=== PATIENT | male | born 1970 ===

== ENCOUNTER 2023-03-29 05:18 | Day surgery (SDC) | payer OTHER ==
[2023-03-25 13:14] LABS: URINE APPEARANCE Clear; URINE BILIRRUBIN Negative (NEGATIVE); URINE BLOOD Trace; URINE COLOR Yellow; URINE GLUCOSE Negative (NEGATIVE); URINE LEUKOCYTE Trace; URINE NITRATE Negative; URINE PROTEIN Negative (NEGATIVE); URINE UROBILINOGEN 0.2 E.U./dl
[2023-03-25 13:19] LABS: HEMATOCRIT 48.8 % (39.0-48.0); HEMOGLOBIN 15.9 g/dL (13-16.00); MEAN CELL VOLUME 82.4 fL (80.0-100.00); MEAN CORPUSCULAR HEMOGLOBIN 26.8 pg (27.00-32.0); MEAN CORPUSCULAR HGB CONC 32.5 g/dl (32.0-36.0); PLATELET COUNT 401 K/uL (150-450); RED BLOOD COUNT 5.92 M/uL (4.00-6.00); RED CELL DISTRIBUTION WIDTH 14.7 % (11.5-14.5)
[2023-03-25 13:43] LABS: INR 1.09; PARTIAL THROMBOPLASTIN TIME 28.6 SECONDS (22.0-34.0); PROTHROMBIN TIME 11.4 SECONDS (9.0-11.5)
[2023-03-25 13:54] LABS: URINE BACTERIA MODERATE; URINE EPITHELIAL CELLS 0-4 /HPF; URINE MUCUS SCANT
[2023-03-25 13:57] LABS: ALBUMIN 3.6 gm/dL (3.4-5.0); BILIRUBIN TOTAL 0.39 mg/dL (0.3-1.2); BILIRUBIN,CONJUGATED 0.14 mg/dL (0.0-0.2); BILIRUBIN,UNCONJUGATED 0.25 mg/dL (0.0-0.6); CALCIUM 9.2 mg/dL (8.5-10.1); CREATININE SERUM 0.75 mg/dL (0.70-1.30); GFR 110.23; GLOBULINA 3.6 G/DL (2.4-3.5); POTASSIUM 4.53 mEq/L (3.5-5.1); TOTAL PROTEIN 7.2 gm/dL (6.4-8.2)
[~2023-03-29] VITALS: Ht 165.1 cm; Wt 136.1 kg
[2023-03-29] MEDS ORDERED: ONDANSETRON ODT8 MG PO (10:06)
[2023-03-29] MEDS ORDERED: TAMS0.4C PO (10:06)
[2023-03-29] MEDS ORDERED: KETO10TA2 PO (10:06)
[2023-03-29] MEDS ORDERED: PERCOCET 5-3251 EACH PO (10:06)
[2023-03-29] MEDS ORDERED: PROTONIX IV40 MG IV (10:06)
== END 2023-03-29 12:35 | disposition home or self-care (01) ==
LOC: CIR.AMB 05:18
PROVIDERS: ATTEND Surgery
DX: K80.10 Calculus of gallbladder with chronic cholecystitis without obstruction (principal); K80.00 Calculus of gallbladder with acute cholecystitis without obstruction; I10 Essential (primary) hypertension; Z20.822 Contact with and (suspected) exposure to COVID-19